=== PATIENT | male | born 1995 | race Caucasian/White ===

== ENCOUNTER 2022-03-03 21:53 | Emergency (ER) | payer SELFPAY ==
[~2022-03-03] VITALS: Ht 180.3 cm; Wt 90.7 kg
[2022-03-03 22:34] VITALS: BP 151/100
[2022-03-03] MEDS ORDERED: GUAI600T53 PO (23:32)
[2022-03-03] MEDS ORDERED: IBUP-1955 PO (23:32)
[2022-03-03] MEDS ORDERED: BENZ200C53 PO (23:32)
--- NOTE | 2022-03-03 23:41 | NUR ---
Patient discharged to home in stable condition. Written and verbal after care instructions given. Patient verbalizes understanding of instruction. Pt ambulatory with a steady gait
== END 2022-03-03 23:42 | disposition home or self-care (01) ==
LOC: ER 21:56
DX: B34.9 Viral infection, unspecified (principal); R05.9 Cough, unspecified; I10 Essential (primary) hypertension; F17.200 Nicotine dependence, unspecified, uncomplicated; Z88.8 Allergy status to other drugs, medicaments and biological substances; Z79.899 Other long term (current) drug therapy
CPT/HCPCS: 71045-TC

== ENCOUNTER 2022-03-07 02:00 | Emergency (ER) | payer SELFPAY ==
[~2022-03-07] VITALS: Ht 180.3 cm; Wt 90.7 kg
[~2022-03-07 02:00] MED LIST: BENZ200C53 PO; GUAI600T53 PO; IBUP-1955 PO
--- NOTE | 2022-03-07 02:49 | NUR ---
FLAVIA SANDERS FROM HOME C/O ETOH. PATIENT IS AROUSED TO PAIN. VSS. PATIENT TAKEN TO ER BED, CONNECTED TO CARDIAC MONTIORA AND POX. WILL CONTINUE TO MONITOR.
[2022-03-07 03:14] VITALS: BP 140/89
[2022-03-07] MEDS ORDERED: ALBU18HF2 INH (04:10)
== END 2022-03-07 04:11 | disposition home or self-care (01) ==
LOC: ER 02:02
DX: F10.129 Alcohol abuse with intoxication, unspecified (principal); J18.9 Pneumonia, unspecified organism; F17.200 Nicotine dependence, unspecified, uncomplicated; I10 Essential (primary) hypertension; Z88.8 Allergy status to other drugs, medicaments and biological substances; Z79.899 Other long term (current) drug therapy; Y90.9 Presence of alcohol in blood, level not specified
CPT/HCPCS: 71045-TC